=== PATIENT | female | born 1985 | race Caucasian/White ===

== ENCOUNTER 2017-02-15 04:01 | Emergency (ER) | payer OTHER ==
[~2017-02-15] VITALS: Ht 175.3 cm; Wt 74.8 kg
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
[2017-02-15] MEDS ORDERED: ACETAMINOPHEN ES 500 MG TABLET ONE (04:52)
[2017-02-15] MEDS ORDERED: IBUPROFEN 400 MG TABLET ONE (04:52)
[2017-02-15] MEDS ORDERED: ACETAMINOPHEN 325 MG TABLET PO ONE (05:00)
[2017-02-15] MEDS ORDERED: IBUPROFEN 400 MG TABLET PO ONE (05:00)
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
--- NOTE | 2017-02-15 05:04 | NUR ---
edPatient discharged to home in stable condition. Written and verbal after care instructions given. Patient verbalizes understanding of instruction. Patient is ambulatory with steady gait, accompanied by friend.
[2017-02-15 05:05] VITALS: BP 141/90
== END 2017-02-15 05:06 | disposition home or self-care (01) ==
LOC: ER 04:03
DX: S50.11XA Contusion of right forearm, initial encounter (principal); W22.8XXA Striking against or struck by other objects, initial encounter; Y93.89 Activity, other specified; Y92.89 Other specified places as the place of occurrence of the external cause; Y99.8 Other external cause status; Z88.1 Allergy status to other antibiotic agents; F17.200 Nicotine dependence, unspecified, uncomplicated
CPT/HCPCS: A4606; Z7610